=== PATIENT | male | born 1985 | race Caucasian/White ===

== ENCOUNTER 2022-10-28 20:56 | Emergency (ER) | payer MEDICAID ==
[~2022-10-28] VITALS: Ht 180.3 cm; Wt 74.8 kg
[2022-10-28 21:26] VITALS: BP_SYST 133
[2022-10-28] MEDS ORDERED: LIDOCAINE 1% 10 MG/ML, 20 ML MDV ID ONE (22:30)
[2022-10-28] MEDS ORDERED: DIPHTH,PERTUSS(ACELL),TET VAC 0.5 ML VIAL (Tdap) I.M. ONE (22:30)
[2022-10-28] MEDS ORDERED: AMOXICILLIN/POTASSIUM CLAV 875 MG TABLET PO ONE (22:30)
[2022-10-28 23:00] VITALS: BP_SYST 126
[2022-10-28] MEDS ORDERED: AUG875 PO (23:27)
== END 2022-10-28 23:00 | disposition home or self-care (01) ==
LOC: SED 20:56
DX: S61.511A Laceration without foreign body of right wrist, initial encounter (principal); Z79.899 Other long term (current) drug therapy; W54.0XXA Bitten by dog, initial encounter; Y93.89 Activity, other specified; Y92.89 Other specified places as the place of occurrence of the external cause; Y99.8 Other external cause status
CPT/HCPCS: 99283; 90715; 90471; 12001; J2001

== ENCOUNTER 2022-11-06 11:57 | Emergency (ER) | payer MEDICAID ==
[~2022-11-06] VITALS: Ht 180.3 cm; Wt 79.4 kg
[~2022-11-06 11:57] MED LIST: AUG875 PO
[2022-11-06 13:01] VITALS: BP_SYST 113
--- NOTE | 2022-11-06 13:05 | NUR ---
Patient triaged and placed in waiting room. VSS and patient appears in no acute distress at this time. Accompanied by self, awaiting available bed, and MD notified of need for MSE.
== END 2022-11-06 13:30 | disposition home or self-care (01) ==
LOC: SED 11:57
DX: Z48.02 Encounter for removal of sutures (principal)
CPT/HCPCS: 99281